=== PATIENT | male | born 1975 | race Caucasian/White ===

== ENCOUNTER 2019-12-14 15:51 | Day surgery (SDC) | payer SELFPAY ==
[2019-12-14] MEDS ORDERED: propofoL 200 MG/20 ML VIAL IV ONE (16:35)
[2019-12-14] MEDS ORDERED: LIDOCAINE 1% MPF 5 ML VIAL ONE (16:35)
[2019-12-14] MEDS ORDERED: MIDAZOLAM HCL 2 MG/2 ML INJ ONE (16:35)
[2019-12-14] MEDS ORDERED: FENTANYL CITR 100 MCG/2 ML ONE (16:35)
[2019-12-14] MEDS ORDERED: dexAMETHasone 4 MG/ML VIAL ONE (16:36)
[2019-12-14] MEDS ORDERED: ONDANSETRON 4 MG/2 ML VIAL ONE (16:36)
[2019-12-14] MEDS ORDERED: Ringers Lactate 1,000 ML IV ONE (16:39)
[2019-12-14] MEDS ORDERED: POVIDONE-IODINE 5% EYE DROPS ONE (16:50)
[2019-12-14] MEDS ORDERED: BSS OPTHALMIC SOL 15 ML BOT OPTH ONE (16:50)
[2019-12-14] MEDS ORDERED: TOBRADEX 0.3-0.1% OPTH OINTMENT ONE (16:50)
[2019-12-14] MEDS ORDERED: HYALURONATE SODIUM 14 MG/ML SYR OPTH ONE ×2 (16:51→17:26)
[2019-12-14] MEDS ORDERED: HYDROCODONE/APAP 10/325 TAB ONE (19:28)
--- NOTE | 2019-12-15 02:34 | OP ---
Date of Procedure: 12/14/2019 Surgeon: Mukesh Brewer MD Commissioned Sales Associate: None. Preoperative Diagnosis: Ruptured globe, left eye. Laceration involving lid margin, left upper lid. Postoperative Diagnosis: Ruptured globe, left eye. Laceration involving lid margin, left upper lid. Description Of Procedure: After being properly identified in the preoperative holding area, the luis ent was taken back to the operating room where a time-out was performed. The patient was then preppe d and draped in the normal sterile fashion by myself in order to not exert any undue pressure on the globe with it being opened. Once this prep had been carefully performed and the drape placed, the op erating microscope was wheeled into position. Examination of the anterior chamber and pupil revealed a round pupil in deep anterior chamber as was visualized in the office and a superior nasal conjunct ival bleb with visible blue sclera present. Using a Loyd scissors, the conjunctiva was cut down superiorly and a laceration measuring 6 to 7 mm x 3 mm in a stellate fashion was observed. Hemostasi s was achieved and carefully using Weck-Bridgette to dry the area, no vitreous was present. Healon viscoel astic was used to reposition the uveal tissue and thereafter the laceration closed using 4-0 Mersilen e suture in interrupted fashion. Approximately 5 sutures were necessary because of the irregular natalie llate laceration, but once this had been closed, the conjunctiva carefully closed over it using 9-0 V icryl. Because of the tension that was had over the conjunctiva, an additional 7-0 Vicryl was placed with intention of removing it later. However, I did not want the conjunctiva to retract exposing ei ther the suture or the repaired laceration. Once this had been tacked down into position, the lid sp eculum and drape were cut superiorly in order to examine the lid laceration. The lid was everted, wh ich showed a partial-thickness laceration on the palpebral conjunctival side along with a laceration of the lid margin, but it did have fairly good apposition. The decision was made to place a single 5 -0 silk through the lid margin and tarsal plate in order to assure good apposition and healing with t he palpebral sided laceration left to heal on its own. This 5-0 silk suture was left with long tails and then tacked into position with an additional 5-0 silk suture through the skin and superior orbic ularis and will be removed in the office after it had appropriate time to heal. The patient is to fo llow up with myself, Dr. Mukesh Brewer, at the [facility] [place] tomorrow morning. There wer e no complications. Estimated Blood Loss: Less than 5 mL. Procedure Performed: Repair of ruptured globe, left eye and repair of laceration, left upper lid inv olving the lid margin, left upper lid. JPG/MODL Voice ID: [id number] Report ID: [id number]
== END 2019-12-14 19:55 | disposition home or self-care (01) ==
LOC: DS 15:51
PROVIDERS: ATTEND Ophthalmology
PROC: 08QPXZZ Repair Left Upper Eyelid, External Approach (ICD-10-PCS; 2019-12-14)
PROC: 08Q9XZZ Repair Left Cornea, External Approach (ICD-10-PCS; principal; 2019-12-14 17:00)
DX: S05.32XA Ocular laceration without prolapse or loss of intraocular tissue, left eye, initial encounter (principal); S01.112A Laceration without foreign body of left eyelid and periocular area, initial encounter; W22.8XXA Striking against or struck by other objects, initial encounter
CPT/HCPCS: J2250; J2405; J2704; J3010; J7120

== ENCOUNTER 2020-01-11 06:25 | Day surgery (SDC) | payer SELFPAY ==
[2020-01-11] MEDS ORDERED: TROPICAMIDE 1% OPTH 3 ML BOT ONE (06:59)
[2020-01-11] MEDS ORDERED: MOXIFLOXACIN HCL 0.5% 3ML OPTH OPTH ONE ×3 (07:00→07:34)
[2020-01-11] MEDS ORDERED: Ringers Lactate 1,000 ML IV ONE ×2 (07:00→09:49)
[2020-01-11] MEDS ORDERED: CYCLOPENTOLATE 2% OPTH 2 ML ONE (07:00)
[2020-01-11] MEDS ORDERED: KETOROLAC OPTHALMIC 5 ML BOT ONE (07:00)
[2020-01-11] MEDS ORDERED: PHENYLEPHRINE 2.5% OPTH 2 ML ONE (07:01)
[2020-01-11] MEDS: TOBRADEX 0.3-0.1% OPTH OINTMENT ONE ×2 (07:04→09:32)
[2020-01-11] MEDS ORDERED: POVIDONE-IODINE 5% EYE DROPS ONE (07:18)
[2020-01-11] MEDS ORDERED: LIDOCAINE 1% W/EPI 1:100,000 MDV 20 ML VIAL ONE (07:18)
[2020-01-11] MEDS ORDERED: BALANCED SALT IRRIG PLAIN 500 ML BTL IRR ONE (07:18)
[2020-01-11] MEDS ORDERED: BSS OPTHALMIC SOL 15 ML BOT OPTH ONE (07:18)
[2020-01-11] MEDS ORDERED: PHENYLEPHRINE 10% OPTH 5ML OPTH ONE ×3 (07:19→08:00)
[2020-01-11] MEDS ORDERED: CYCLOPENTOLATE 2% OPTH 2 ML OPTH ONE ×2 (07:19→07:34)
[2020-01-11] MEDS ORDERED: TROPICAMIDE 1% OPTH 3 ML BOT OPTH ONE ×2 (07:19→07:34)
[2020-01-11] MEDS ORDERED: KETOROLAC OPTHALMIC 5 ML BOT OPTH ONE ×2 (07:19→07:34)
[2020-01-11] MEDS ORDERED: FENTANYL CITR 100 MCG/2 ML ONE ×2 (07:36→09:01)
[2020-01-11] MEDS ORDERED: propofoL 200 MG/20 ML VIAL IV ONE (07:36)
[2020-01-11] MEDS ORDERED: MIDAZOLAM HCL 2 MG/2 ML INJ ONE (07:36)
[2020-01-11] MEDS ORDERED: LIDOCAINE 1% MPF 5 ML VIAL ONE (07:36)
[2020-01-11] MEDS ORDERED: ESMOLOL HCL 10 ML IV ONE (08:14)
[2020-01-11] MEDS ORDERED: KETOROLAC 30 MG/ML INJ ONE (08:32)
[2020-01-11] MEDS ORDERED: dexAMETHasone 10 MG/ML VIAL ONE (08:32)
[2020-01-11] MEDS ORDERED: ONDANSETRON 4 MG/2 ML VIAL ONE (08:41)
[2020-01-11 10:12] VITALS: O2SAT 95
--- NOTE | 2020-01-11 10:47 | OP ---
Date of Procedure: 01/11/2020 Surgeon: Mukesh Brewer MD Tavern Keeper: None. Preoperative Diagnosis: Suture erosion, left eye. Postoperative Diagnosis: Suture erosion, left eye. Procedure Performed: Placement of scleral patch graft, left eye. Description Of Procedure: After being properly identified in the preoperative holding area, the luis ent was taken back to the operating room where a time-out was performed. The patient was then preppe d and draped in the normal sterile fashion. Examination of the left eye underneath the operating tristian roscope revealed a red area in the superior nasal quadrant along with subconjunctival erosion with pe netration of the Mersilene sutures that had been used to close the open globe that this patient exper ienced earlier in the month. A bridle suture was placed inferiorly with 5-0 silk suture in order to juan josé the eye and even better visualization, and then BSS was injected underneath the conjunctiva in order to create a bleb to help with dissection using a Loyd scissors. The conjunctiva was dissec dayan over the area of the sutures. We did encounter significantly more scarring and adhesion of the c onjunctiva to the sclera and globe. Then, I anticipated after only such a short time. Nevertheless, this was dissected free. Hemostasis was achieved using light cautery and once the area had been taiwo aned down to the sclera, a 7 mm x 7 mm scleral patch of human sclera was placed over the area. This was tacked down into position using four 10-0 nylon sutures, 1 in each corner with an additional rein forcement on the nasal aspect using both an additional nylon suture and then a single 10-0 Prolene bellamy ture. Once this had been into place, a Loyd scissors was used to create a bevel on the anterior surface of the cornea in order to reduce the chance of any dellen formation. This was not performed prior to placement of the graft because all 7 mm was necessary in order to cover the suture in the la ceration space. Once this had been trimmed, the conjunctiva was further loosened and then pulled ove r. A small amount of redundant conjunctiva was trimmed, which had a buttonhole and was not otherwise able to cover adequately. However, excellent conjunctival coverage of both the graft and even the s uperior aspect of the limbus was performed. This was tied into place using 9-0 Vicryl suture, 1 at t he 3 o'clock and another at the 9 o'clock with an additional suture placed nasally in order to close the gap. Once this had been performed, examination was head underneath the microscope again resultin g in an excellent appearance with good conjunctival coverage and the scleral patch graft covering all visible sutures. The procedure was thereafter concluded and the bridle suture and speculum were rem cristiano. The patient was patched over TobraDex ointment, taken to the postoperative holding area in sta ble condition, having tolerated the procedure well as he was asleep. He is to follow up with myself, Dr. Mukesh Brewer, at the [facility] [place] tomorrow morning. COLEENG/ADAL Voice ID: [id number] Report ID: [id number]
[2020-01-11] MEDS ORDERED: HYDROCODONE/APAP 10/325 TAB ONE (10:55)
[2020-01-11 11:05] VITALS: BP 126/60; TEMP 98.3
== END 2020-01-11 11:20 | disposition home or self-care (01) ==
LOC: OR 06:25
PROVIDERS: ATTEND Ophthalmology
PROC: 08U Eye, Supplement (ICD-10-PCS; principal; 2020-01-11 07:30)
DX: H57.12 Ocular pain, left eye (principal); T81.31XA Disruption of external operation (surgical) wound, not elsewhere classified, initial encounter; Z20.828 Contact with and (suspected) exposure to other viral communicable diseases
CPT/HCPCS: J1100; J2250; J2405; J2704; J3010; J7120; U0002